=== PATIENT | female | born 1985 | race Caucasian/White ===

== ENCOUNTER 2016-09-21 21:08 | Emergency (ER) | payer OTHER, MEDICAID ==
[2016-09-21 21:21] VITALS: O2SAT 99
[2016-09-21] MEDS ORDERED: KETOROLAC TROMETHAMINE 30 MG/ML SOL IM ONE (21:33)
[2016-09-21] MEDS ORDERED: KETOROLAC TROMETHAMINE 30 MG/ML SOL ONE (21:34)
[2016-09-21 21:55] LABS: APPEARANCE,URINE Clear; BILIRUBIN,URINE NEGATIVE (NEGATIVE); COLOR,URINE Yellow; GLUCOSE, URINE (UA) TRACE (NEGATIVE); KETONES,URINE NEGATIVE (NEGATIVE); LEUKOCYTE ESTERASE ,URINE NEGATIVE (NEGATIVE); NITRATE,URINE NEGATIVE (NEGATIVE); OCCULT BLOOD,URINE NEGATIVE (NEG-TRACE)
[2016-09-21 22:01] LABS: RBC,URINE 0-2 (0-3AV/HPF)
[2016-09-21 22:03] VITALS: RESP 16; TEMP 99
[2016-09-21] MEDS ORDERED: TRAMADOL HYDROCHLORIDE 50 MG TAB PO ONE (22:11)
[2016-09-21] MEDS ORDERED: DIAZEPAM 5 MG TAB PO ONE (22:12)
[2016-09-21] MEDS ORDERED: TRAMADOL HYDROCHLORIDE 50 MG TAB ONE (22:14)
[2016-09-21] MEDS ORDERED: DIAZEPAM 5 MG TAB ONE (22:14)
[2016-09-21 22:50] VITALS: BP 114/68; PULSE 79
== END 2016-09-21 23:02 | disposition home or self-care (01) | DRG 552 ==
LOC: ED 21:08
DX: M54.5 Low back pain (principal)
CPT/HCPCS: 81001; 96372; 99284; J1885

== ENCOUNTER 2016-09-25 10:08 | Emergency (ER) | payer OTHER, MEDICAID ==
[2016-09-25 10:20] VITALS: RESP 16; TEMP 98.8
[2016-09-25 10:47] VITALS: BP 137/67; PULSE 86; O2SAT 99
== END 2016-09-25 11:07 | disposition home or self-care (01) | DRG 552 ==
LOC: ED 10:08
DX: M54.5 Low back pain (principal)
CPT/HCPCS: 99282

== ENCOUNTER 2016-11-01 08:40 | Day surgery (SDC) | payer OTHER, MEDICAID ==
[2016-11-01 09:00] VITALS: TEMP 97.3
[2016-11-01] MEDS ORDERED: TRIAMCINOLONE ACETONIDE 40 MG/ML SUS ONE (09:13)
[2016-11-01 09:50] VITALS: BP 100/84; PULSE 69; RESP 14; O2SAT 100
== END 2016-11-01 09:59 | disposition home or self-care (01) | DRG 552 ==
LOC: SURG 08:40
PROVIDERS: ATTEND Nurse Anesthetist, Certified Registered
DX: M54.5 Low back pain (principal); M54.10 Radiculopathy, site unspecified
CPT/HCPCS: 82962; J3300

== ENCOUNTER 2016-12-03 17:20 | Emergency (ER) | payer OTHER, MEDICAID ==
[2016-12-03 17:29] VITALS: RESP 18; TEMP 97.8
[2016-12-03] MEDS ORDERED: ONDANSETRON HCL 4 MG/2 ML SOL IV ONE (17:41)
[2016-12-03] MEDS ORDERED: SODIUM CHLORIDE 0.9% 1000 ML SOL IV SCH (17:45)
[2016-12-03] MEDS ORDERED: ONDANSETRON HCL 4 MG/2 ML SOL ONE (17:54)
[2016-12-03] MEDS ORDERED: NOVOLOG FLEXPEN SC SCH (18:00)
[2016-12-03 18:01] LABS: BASOPHILS % (AUTO) 1 % (0-3); EOSINOPHILS % (AUTO) 2 % (0-9); HEMATOCRIT 43 % (35-47); MEAN CORPUSCULAR HGB CONC 34.3 gm/dl (32.0-36.0); MEAN CORPUSCULAR VOLUME 92 fL (81-99); MONOCYTES % (AUTO) 6.4 % (0-12)
[2016-12-03 18:02] LABS: APPEARANCE,URINE Slightly Cloudy; BILIRUBIN,URINE NEGATIVE (NEGATIVE); COLOR,URINE Light yellow; GLUCOSE, URINE (UA) 2+ (NEGATIVE); KETONES,URINE 1+ (NEGATIVE); LEUKOCYTE ESTERASE ,URINE NEGATIVE (NEGATIVE); NITRATE,URINE NEGATIVE (NEGATIVE); OCCULT BLOOD,URINE 1+ (NEG-TRACE); UROBILINOGEN,URINE 0.2 (0.2-1.0 EU)
[2016-12-03 18:08] LABS: RBC,URINE 0-2 (0-3AV/HPF); WBC,URINE 0-2 (0-5AV/HPF)
[2016-12-03 18:13] LABS: CALCIUM 8.3 mg/dl (8.5-10.1); POTASSIUM 3.8 mMol/L (3.5-5.1)
[2016-12-03 19:28] VITALS: BP 110/67; PULSE 73; O2SAT 97
== END 2016-12-03 19:20 | disposition home or self-care (01) | DRG 639 ==
LOC: ED 17:20
DX: E10.65 Type 1 diabetes mellitus with hyperglycemia (principal); Z79.4 Long term (current) use of insulin
CPT/HCPCS: 36415; 80048; 81001; 82009; 82962; 85025; 99284; J2405

== ENCOUNTER 2017-02-25 10:34 | Emergency (ER) | payer OTHER ==
[2017-02-25 11:18] VITALS: RESP 20; TEMP 97.6; O2SAT 95
[2017-02-25] MEDS ORDERED: LEVOFLOXACIN 500 MG TAB PO ONE (11:44)
[2017-02-25] MEDS ORDERED: LEVOFLOXACIN 500 MG TAB ONE (11:52)
[2017-02-25 13:15] VITALS: BP 110/71; PULSE 96
== END 2017-02-25 12:20 | disposition home or self-care (01) | DRG 198 ==
LOC: ED 10:34
DX: J84.9 Interstitial pulmonary disease, unspecified (principal); H65.92 Unspecified nonsuppurative otitis media, left ear
CPT/HCPCS: 71010; 99283

== ENCOUNTER 2017-04-22 14:17 | Emergency (ER) | payer OTHER ==
[2017-04-22] MEDS ORDERED: KETOROLAC TROMETHAMINE 30 MG/ML SOL IM ONE (14:31)
[2017-04-22] MEDS ORDERED: KETOROLAC TROMETHAMINE 30 MG/ML SOL ONE (14:41)
[2017-04-22 14:50] VITALS: TEMP 97.8; O2SAT 97
[2017-04-22 15:28] VITALS: BP 119/78; PULSE 76; RESP 18
== END 2017-04-22 15:36 | disposition home or self-care (01) | DRG 605 ==
LOC: ED 14:17
DX: S90.112A Contusion of left great toe without damage to nail, initial encounter (principal)
CPT/HCPCS: 73630; 99283; J1885

== ENCOUNTER 2017-06-09 15:09 | Emergency (ER) | payer OTHER ==
[2017-06-09 15:29] VITALS: BP 123/82; PULSE 90; RESP 20; TEMP 98; O2SAT 99
== END 2017-06-09 16:38 | disposition home or self-care (01) | DRG 563 ==
LOC: ED 15:09
DX: S63.501A Unspecified sprain of right wrist, initial encounter (principal)
CPT/HCPCS: 73110; 99282

== ENCOUNTER 2017-07-02 16:17 | Emergency (ER) | payer OTHER ==
[2017-07-02] MEDS ORDERED: HYDROMORPHONE HCL 2 MG/ML SOL ONE ×2 (16:24→17:29)
[2017-07-02] MEDS ORDERED: HYDROMORPHONE HCL 2 MG/ML SOL IV ONE ×2 (16:35→17:25)
[2017-07-02 17:16] VITALS: BP 112/88; PULSE 79; RESP 18; TEMP 98.8
[2017-07-02 17:17] VITALS: O2SAT 98
== END 2017-07-02 18:25 | disposition home or self-care (01) | DRG 605 ==
LOC: ED 16:17
DX: S30.0XXA Contusion of lower back and pelvis, initial encounter (principal); W00.1XXA Fall from stairs and steps due to ice and snow, initial encounter
CPT/HCPCS: 72131; 72192; 99284; J1170

== ENCOUNTER 2018-03-09 23:00 | Emergency (ER) | payer OTHER, MEDICAID ==
[2018-03-09] MEDS ORDERED: CODEINE/GUAIFENESIN 5 ML ML PO ONE (23:41)
[2018-03-09 23:48] LABS: BASOPHILS % (AUTO) 1 % (0-3); EOSINOPHILS % (AUTO) 4 % (0-9); HEMATOCRIT 47 % (35-47); HEMOGLOBIN 15.2 gm/dl (12.0-15.5); LYMPHOCYTES % (AUTO) 28.8 % (10-50); MEAN CORPUSCULAR HEMOGLOBIN 29.3 pg (27.0-32.0); MEAN CORPUSCULAR HGB CONC 32.3 gm/dl (32.0-36.0); MEAN CORPUSCULAR VOLUME 91 fL (81-99); MONOCYTES % (AUTO) 8.1 % (0-12); NEUTROPHILS % (AUTO) 58.3 % (37-80)
[2018-03-09 23:57] LABS: CARBON DIOXIDE 25.7 mEq/L (21-32); CREATININE 0.81 mg/dl (0.60-1.00); POTASSIUM 4.1 mMol/L (3.5-5.1)
[2018-03-10] MEDS ORDERED: CODEINE/GUAIFENESIN 5 ML ML ONE (00:03)
[2018-03-10] MEDS ORDERED: PREDNISONE 20 MG TAB PO ONE (00:11)
[2018-03-10] MEDS ORDERED: PREDNISONE 20 MG TAB ONE (00:22)
[2018-03-10 00:29] VITALS: RESP 16; TEMP 97.6
[2018-03-10 01:05] VITALS: BP 129/84; PULSE 81; O2SAT 97
== END 2018-03-10 00:40 | disposition home or self-care (01) | DRG 204 ==
LOC: ED 23:00
DX: R05 Cough (principal); J20.9 Acute bronchitis, unspecified; R07.89 Other chest pain; E10.9 Type 1 diabetes mellitus without complications
CPT/HCPCS: 36415; 71046; 80048; 84484; 85025; 93005; 99283; A9270-GY

== ENCOUNTER 2018-12-07 12:53 | Emergency (ER) | payer MEDICAID ==
[2018-12-07] MEDS ORDERED: KETOROLAC TROMETHAMINE 30 MG/ML SOL IV ONE (13:14)
[2018-12-07] MEDS ORDERED: SODIUM CHLORIDE 0.9% 1000ML 1,000 ML IV SCH (13:15)
[2018-12-07 13:16] VITALS: RESP 18; TEMP 96.9
[2018-12-07] MEDS ORDERED: ONDANSETRON HCL 4 MG/2 ML SOL IV ONE (13:34)
[2018-12-07] MEDS ORDERED: KETOROLAC TROMETHAMINE 30 MG/ML SOL ONE (13:34)
[2018-12-07] MEDS ORDERED: ONDANSETRON HCL 4 MG/2 ML SOL ONE (13:36)
[2018-12-07] MEDS ORDERED: DIPHENHYDRAMINE 50 MG/ML SOL IV ONE (14:21)
[2018-12-07] MEDS ORDERED: DIPHENHYDRAMINE 50 MG/ML SOL ONE (14:23)
[2018-12-07 14:31] VITALS: BP 124/81; PULSE 60; O2SAT 97
== END 2018-12-07 15:04 | disposition home or self-care (01) | DRG 103 ==
LOC: ED 12:53
DX: G43.909 Migraine, unspecified, not intractable, without status migrainosus (principal)
CPT/HCPCS: 80053; 81001; 82009; 82962; 85025; 99285; J1200; J1885; J2405

== ENCOUNTER 2018-12-07 21:52 | Observation (INO) | payer MEDICAID ==
[2018-12-07 13:47] LABS: BASOPHILS % (AUTO) 1 % (0-3); EOSINOPHILS % (AUTO) 3 % (0-9); HEMATOCRIT 45 % (35-47); HEMOGLOBIN 15.4 gm/dl (12.0-15.5); LYMPHOCYTES % (AUTO) 26.9 % (10-50); MEAN CORPUSCULAR HGB CONC 34.3 gm/dl (32.0-36.0); MEAN CORPUSCULAR VOLUME 93 fL (81-99); MONOCYTES % (AUTO) 7.6 % (0-12); NEUTROPHILS % (AUTO) 62.2 % (37-80)
[2018-12-07 14:06] LABS: APPEARANCE,URINE Cloudy; BILIRUBIN,URINE NEGATIVE (NEGATIVE); COLOR,URINE Yellow; GLUCOSE, URINE (UA) 2+ (NEGATIVE); KETONES,URINE 1+ (NEGATIVE); LEUKOCYTE ESTERASE ,URINE NEGATIVE (NEGATIVE); NITRATE,URINE NEGATIVE (NEGATIVE); OCCULT BLOOD,URINE NEGATIVE (NEG-TRACE); PH,URINE 5.5; UROBILINOGEN,URINE 0.2 (0.2-1.0 EU)
[2018-12-07 14:09] LABS: ALBUMIN 3.9 gm/dl (3.4-5.0); ALKALINE PHOSPHATASE 66 IU/L (46-116); ALT 18 IU/L (14-63); AST 12 IU/L (15-37); BILIRUBIN,TOTAL 0.6 mg/dl (0.2-1.0); BLOOD UREA NITROGEN 20 mg/dl (7-18); CALCIUM 8.6 mg/dl (8.5-10.1); CARBON DIOXIDE 27.9 mEq/L (21-32); CHLORIDE 103 mMol/L (98-107); CREATININE 0.78 mg/dl (0.60-1.00); GLUCOSE 202 mg/dl (74-106); TOTAL PROTEIN 6.9 gm/dl (6.4-8.2)
[2018-12-07 14:30] LABS: BACTERIA TRACE (< 1+); CRYSTALS NEGATIVE (0-3 AVE/HPF); RBC,URINE 0-1 (0-3AV/HPF); WBC,URINE 0-1 (0-5AV/HPF)
[2018-12-07 22:02] VITALS: RESP 16
[2018-12-07] MEDS ORDERED: DIPHENHYDRAMINE 50 MG/ML SOL IV ONE (22:02)
[2018-12-07] MEDS ORDERED: ONDANSETRON HCL 4 MG/2 ML SOL IV ONE (22:02)
[2018-12-07] MEDS ORDERED: KETOROLAC TROMETHAMINE 30 MG/ML SOL IV ONE (22:02)
[2018-12-07] MEDS ORDERED: KETOROLAC TROMETHAMINE 30 MG/ML SOL ONE (22:07)
[2018-12-07] MEDS ORDERED: DIPHENHYDRAMINE 50 MG/ML SOL ONE (22:08)
[2018-12-07] MEDS ORDERED: ONDANSETRON HCL 4 MG/2 ML SOL ONE (22:08)
[2018-12-07] MEDS: SODIUM CHLORIDE 0.9% 1000ML 1,000 ML IV SCH (22:15)
[2018-12-07] MEDS ORDERED: SODIUM CHLORIDE 0.9% FLUSH 10 ML SOL IV PRN (22:22)
[2018-12-07] MEDS ORDERED: ACETAMINOPHEN 500 MG 500 MG TAB PO PRN (23:18)
[2018-12-07] MEDS ORDERED: IBUPROFEN 600 MG TAB PO PRN (23:18)
[2018-12-07] MEDS ORDERED: HYDROXYZINE PAMOATE 25 MG CAP PO PRN (23:18)
[2018-12-07] MEDS ORDERED: ONDANSETRON HCL 4 MG/2 ML SOL IV PRN (23:21)
[2018-12-07] MEDS ORDERED: HYDRALAZINE HYDROCHLORIDE 20 MG/ML SOL IV SCH (23:30)
[2018-12-08] MEDS: INSULIN ASPART SQ SCH ×2 (00:04→08:30)
[2018-12-08] MEDS: GABAPENTIN 300 MG CAP PO SCH ×2 (00:08→09:41)
[2018-12-08] MEDS: KETOROLAC TROMETHAMINE 30 MG/ML SOL IV PRN ×2 (01:19→07:45)
[2018-12-08] MEDS: SODIUM CHLORIDE 0.9% 1000ML 1,000 ML IV SCH (06:09)
[2018-12-08 07:40] LABS: BASOPHILS % (AUTO) 1 % (0-3); EOSINOPHILS % (AUTO) 4 % (0-9); HEMATOCRIT 43 % (35-47); HEMOGLOBIN 14.3 gm/dl (12.0-15.5); LYMPHOCYTES % (AUTO) 25.3 % (10-50); MEAN CORPUSCULAR HEMOGLOBIN 31.9 pg (27.0-32.0); MEAN CORPUSCULAR HGB CONC 33.6 gm/dl (32.0-36.0); MEAN CORPUSCULAR VOLUME 95 fL (81-99)
[2018-12-08 08:01] LABS: ALBUMIN 2.9 gm/dl (3.4-5.0); BILIRUBIN,TOTAL 0.3 mg/dl (0.2-1.0); CALCIUM 7.7 mg/dl (8.5-10.1); CREATININE 0.79 mg/dl (0.60-1.00); TOTAL PROTEIN 5.6 gm/dl (6.4-8.2)
[2018-12-08 08:05] LABS: CARBON DIOXIDE 26.9 mEq/L (21-32)
[2018-12-08] MEDS ORDERED: ESCITALOPRAM 10 MG TAB PO SCH (09:00)
[2018-12-08] MEDS ORDERED: BUPROPION PO SCH (09:00)
[2018-12-08] MEDS ORDERED: BUPROPION XL 300 MG T24 PO SCH (09:30)
[2018-12-08] MEDS ORDERED: NOVOLOG FLEXPEN SC SCH (09:30)
[2018-12-08] MEDS ORDERED: METOCLOPRAMIDE HCL 5 MG/ML 10 MG in SODIUM CHLORIDE 0.9% 50 ML 50 ML IV ONE (11:11)
[2018-12-08] MEDS ORDERED: KETOROLAC TROMETHAMINE 30 MG/ML SOL IV ONE (11:52)
[2018-12-08] MEDS ORDERED: DIPHENHYDRAMINE 50 MG/ML SOL IV ONE (11:52)
[2018-12-08] MEDS ORDERED: SODIUM CHLORIDE 0.9% 50 ML 50 ML IV ONE (11:58)
[2018-12-08] MEDS ORDERED: METOCLOPRAMIDE HYDROCHLORIDE 5 MG/ML SOL ONE (11:58)
[2018-12-08 12:31] VITALS: BP 124/79; PULSE 85; TEMP 97.7; O2SAT 96
== END 2018-12-08 14:20 | disposition home or self-care (01) | DRG 103 ==
LOC: ED 21:52 → ACUTE CARE 22:46
PROVIDERS: ADMIT Family Medicine; ATTEND Family Medicine
DX: G43.009 Migraine without aura, not intractable, without status migrainosus (principal); R73.9 Hyperglycemia, unspecified; Z79.4 Long term (current) use of insulin; E10.9 Type 1 diabetes mellitus without complications
CPT/HCPCS: 36415; 80053; 81001; 82009; 82962; 85025; 96365; 96366; 96374; 96375; 99070; 99217; 99219; 99285; J0360; J1200; J1885; J2405; J2765; A9270-GY